=== PATIENT | female | born 2000 | race Two or more races ===

== ENCOUNTER 2024-08-27 23:09 | Inpatient (IN) | payer OTHER ==
[~2024-08-27] VITALS: Ht 157.5 cm; Wt 59.0 kg
[2024-08-27 23:39] LABS: Urine Bacteria MANY /hpf (None Seen); Urine Blood Negative /uL (Negative); Urine Clarity Turbid (Clear); Urine Color Yellow (Yellow); Urine Mucus FEW (None Seen); Urine Protein, UAD TRACE (Negative); Urine Specific Gravity 1.024 (1.001-1.035); Urine Squamous Epithelial Cell FEW /hpf (<5); Urine Urobilinogen Normal (Negative); Urine WBC 8 /HPF (0-5); Urine pH 6.5 (5.0-9.0)
[2024-08-27 23:48] LABS: Cannabinoid Screen, Urine Pos (NEGATIVE)
[2024-08-27 23:49] LABS: Barbiturate Scree,Urine Neg (NEGATIVE); Opiate Scree,Urine Neg (NEGATIVE); Phencyclidine Screen, Urine Neg (NEGATIVE)
[2024-08-27 23:50] LABS: Amphetamine Screen, Urine Neg (NEGATIVE); Benzodiazephine Screen, Urine Neg (NEGATIVE); Cocaine Screen, Urine Neg (NEGATIVE)
[2024-08-27] MEDS: BETAMETHASONE ACET (30mg/5ml) 5ml Vial 6mg/ml IM STA (23:53)
--- NOTE | 2024-08-27 23:54 | DVHHP2 ---
OB CC & HPI Date Date of Admission: Aug 27, 2024 Patient Identification: : 4 Para: 3 EDC: Oct 04, 2024 EGA: 34.4wks Chief Complaints: Reason for admission: labor (active) History of Present Complaints 23yo IUP@34.4wks presents in active labor. Pt reports UCs Q3 min that started this evening. Denies LOF/VB/BHAKTA/vision changes/RUQ pain. Endorses +FM. Limited PNC in [place] with Dr. Kathia Messina and MFM Dr. Smart, has not been seen since 20 weeks since she moved to [facility]. No records available. Dating based on first trimester sono. GTT and GBS not done. OB hx: #1 - , 37 wks, no complications #2 - , 35 wks, PTD, no other complications, hx of fast #3 - , 34 wks, PTD, no other complications, hx of fast Denies hx of PPH or blood transfusion Past Medical History Cardiac: No pertinent Hx Pulmonary: No pertinent Hx Central Nervous System: No pertinent Hx GI: No pertinent Hx Hemotology/Oncology: No pertinent Hx Hepatobiliary: No pertinent Hx Psychiatric: No pertinent Hx Musculoskeletal: No pertinent Hx Rheumotologic: No pertinent Hx Infectious Disease: No peritnent Hx ENT: No pertinent Hx Renal/: No pertinent Hx Endocrine: No pertinent Hx Dermatology: No pertinent Hx Past Surgical History: No pertinent Hx OB History OB History Care: Limited Care Ultrasounds: Other (normal per pt) Obstetrical Complications: None Medical Complications: None Allergies: Coded Allergies: NO KNOWN ALLERGIES (Unverified , 08/27/24) Home Meds Active Scripts Cephalexin (KEFLEX CAPSULE) 250 Mg Cp, 500 MG PO BID for 7 Days, #14 CAP Prov:LINETTE AIMN CNM 08/28/24 Home Meds PNV Current Medications Current Medications Medications (Trade) Dose Ordered Sig/Malcolm Route PRN Reason Start Time Stop Time Status Last Admin Betamethasone Acet/Betameth SodPhos (Celestone Injection) 12 mg ONCE STAT IM 08/27/24 23:44 08/27/24 23:46 DC Family & Social History Family/Social History Past Family/Social History: denies Blood Type: Unknown Rubella: unknown RPR/VDRL: Unknown GBS Status: Unknown HBsAG: Unknown Review of Systems Constitutional: No symptom reported Ears, Nose, & Throat: No symptom reported Eyes: No symptom reported Pulmonary/Respiratory: No symptom reported Cardiovascular: No symptom reported Gastrointestinal: No symptom reported Genitourinary: No symptom reported Musculoskeletal: No symptom reported Skin: No symptom reported Psychiatric: No symptom reported Endocrine: No symptom reported Hemotologic/Lymphatic: No symptom reported OB Admission Exam Physical Exam Vitals: VSS, see chart Laboratory Tests Test 08/27/24 23:21 08/27/24 23:59 Range/Units Urine Color Yellow Yellow Urine Clarity Turbid H Clear Urine pH 6.5 5.0-9.0 Urine Specific [place] 1.024 1.001-1.035 Urine Protein Trace H Negative Urine Ketones 1+ H Negative Urine Blood Negative Negative /uL Urine Nitrite 2+ H Negative Urine Bilirubin Negative Negative Urine Urobilinogen Normal Negative mg/dL Urine Leukocyte Esterase 1+ Negative /uL Urine RBC 1 0 - 4 /hpf Urine Microscopic WBC 8 H 0-5 /HPF Urine Squamous Epithelial Cells Few <5 /hpf Urine Bacteria Many H None Seen /hpf Urine Mucus Few None Seen Urine Glucose Normal Normal mg/dL Urine Opiates Screen Neg NEGATIVE Urine Fentanyl Screen Neg NEGATIVE Urine Barbiturates Screen Neg NEGATIVE Urine Phencyclidine Screen Neg NEGATIVE Urine Amphetamines Screen Neg NEGATIVE Urine Benzodiazepines Screen Neg NEGATIVE Urine Cocaine Screen Neg NEGATIVE Urine Cannabinoids Screen Pos NEGATIVE Chlamydia trachomatis (LASHAWN) Pending Neisseria gonorrhoeae (LASHAWN) Pending White Blood Count 15.5 H 4.4-10.8 10^3/uL Red Blood Count 4.17 4.0-5.20 10^6/uL Hemoglobin 11.9 L 12.2-16.2 g/dL Hematocrit 35.1 L 36.0-46.0 % Mean Corpuscular Volume 84.2 80.0-100.0 fL Mean Corpuscular Hemoglobin 28.5 28.0-32.0 pg Mean Corpuscular Hemoglobin Concent 33.8 32.0-36.0 g/dL Red Cell Distribution Width 13.9 11.8-14.3 % Platelet Count 194 140-450 10^3/uL Mean Platelet Volume 8.0 6.9-10.8 fL Neutrophils (%) (Auto) 76.1 37.0-80.0 % Lymphocytes (%) (Auto) 18.4 10.0-50.0 % Monocytes (%) (Auto) 5.0 0.0-12.0 % Eosinophils (%) (Auto) 0.2 0.0-7.0 % Basophils (%) (Auto) 0.3 0.0-2.0 % Neutrophils # (Auto) 11.8 H 1.6-8.6 10 ^3/uL Lymphocytes # (Auto) 2.9 0.4-5.4 10 ^3/uL Monocytes # (Auto) 0.8 0-1.3 10 ^3/uL Eosinophils # (Auto) 0 0-0.8 10 ^3/uL Basophils # (Auto) 0 0-0.2 10 ^3/uL Nucleated Red Blood Cells 0.0 % Prothrombin Time Pending Prothrombin Time INR Pending Activated Partial Thromboplast Time Pending Sodium Level Pending Potassium Level Pending Chloride Level Pending Carbon Dioxide Level Pending Anion Gap Pending Blood Urea Nitrogen Pending Creatinine Pending Glomerular Filtration Rate Calc Pending BUN/Creatinine Ratio Pending Serum Glucose Pending Calcium Level Pending Total Bilirubin Pending Aspartate Amino Transferase (AST) Pending Alanine Aminotransferase (ALT) Pending Alkaline Phosphatase Pending Total Protein Pending Albumin Pending Treponema pallidum Antibody Pending Hepatitis B Surface Antigen Pending Hepatitis C Antibody Pending HIV (1&2) Antibody Pending Rubella Antibody Pending HEENT: TMs Normal, Fontanelles Normal, Nasal Mucosa Normal, Eyes non-injected, Oropharynx Normal, PERRLA, Moist Membranes, EOMI Heart: Rhythm Normal Lungs: Clear Abdomen: Gravid Extremities: Normal Reflexes: Normal Cervical Dilatation: 6cm Effacement: Other (80%) Station: 0 Membranes: Intact Heart Rate: 130's Accelerations: Accelerations Present Decelerations: No Decelerations Stock Parts Inspector Variability: Average (6-25) Contractions on Admission: < 5 Minutes Apart Intensity: Moderate OB Plan Plan Admitting Diagnosis: active labor Plan: Expectant Management Other Plan: A: 23yo IUP@34.4wks Active labor UTI Category I EFM Intact Membranes GBS not done P: Dr. Shukla consulted, Betamethasone 12mg IM ordered and Admit to L&D Anticipate precipitous vaginal delivery and prepare peds team Informed consent obtained Pt declines continuous EFM. AMA form signed. RN instructed to doppler FHTs q30 min for now. OB complete ordered Walk-in OB labs ordered Start IV PCN for GBS prophylaxis Rx sent for keflex (UTI treatment after D/C). Discussed with pt and FOB. LAUREN is co-managing care with Dr. Shukla. Visit Coding OBGYN Date of Service: Aug 28, 2024 Billing Provider: LINETTE AMIN CNM ANIMAL BREEDER Common Visit Codes: 32848-VBPTISP INP/OBS CARE (HIGH) ANIMAL BREEDER Procedure Codes: 54108-28- NON-STRESS TEST LINETTE AMIN CNM Aug 27, 2024 23:54
[2024-08-28] MEDS ORDERED: LACTATED RINGER'S 1,000 ML IV SCH
[2024-08-28] MEDS ORDERED: LIDOCAINE 2%HCL (LOCAL ANESTH.) INJ 20ML MDV IJ PRN
[2024-08-28] MEDS ORDERED: OXYTOCIN 10UNIT/ML 1ML VIAL IM ONE (00:15)
[2024-08-28 00:24] LABS: Basophils # (auto) 0 10 ^3/uL (0-0.2); Basophils % (auto) 0.3 % (0.0-2.0); Eosinophils # (auto) 0 10 ^3/uL (0-0.8); Eosinophils % (auto) 0.2 % (0.0-7.0); Hematocrit 35.1 % (36.0-46.0); Hemoglobin 11.9 g/dL (12.2-16.2); Lymphocytes # (auto) 2.9 10 ^3/uL (0.4-5.4); Lymphocytes % (auto) 18.4 % (10.0-50.0); Mean Corpuscular Hemoglobin 28.5 pg (28.0-32.0); Mean Corpuscular Hgb Conc. 33.8 g/dL (32.0-36.0); Mean Corpuscular Volume 84.2 fL (80.0-100.0); Monocytes # (auto) 0.8 10 ^3/uL (0-1.3); Neutrophils # (auto) 11.8 10 ^3/uL (1.6-8.6); Neutrophils % (auto) 76.1 % (37.0-80.0); Platelet Count (auto) 194 10^3/uL (140-450); Red Blood Cells 4.17 10^6/uL (4.0-5.20); Red Cell Distribution Width 13.9 % (11.8-14.3); White Blood Cell 15.5 10^3/uL (4.4-10.8)
[2024-08-28] MEDS: PENICILLIN G POTASSIUM 2,500,000 UNITS in D5W 5% 50 ML IV SCH (00:38)
[2024-08-28 00:39] LABS: INR 0.97 (0.9-1.15); Partial Thromboplastin Time 24.7 SEC (24.5-34.5); Prothrombin Time 10.3 sec (9.3-11.8)
[2024-08-28 00:40] LABS: Alanine Aminotransferase 11 U/L (7-40); Albumin 4.2 g/dL (3.2-4.8); Anion Gap 12 (5-15); Aspartate Aminotransferase 18 U/L (13-40); BUN/Creatinine Ratio 10.6 (10.0-20.0); Bilirubin, Total 0.3 mg/dL (0.2-1.0); Calcium 8.9 mg/dL (8.7-10.4); Carbon Dioxide 21 mmol/L (20-31); Chloride 106 mmol/L (98-107); Glucose 81 mg/dL (74-106); Potassium 3.6 mmol/L (3.5-5.1); Sodium 139 mmol/L (136-145); Total Protein 6.8 g/dL (5.7-8.2)
[2024-08-28] MEDS: PENICILLIN G POT 5MIL/D5 50ML 50 ML IV ONE (00:40)
[2024-08-28] MEDS ORDERED: CEPH250C PO (00:42)
[2024-08-28 00:57] LABS: Alkaline Phosphatase 129 U/L (46-116); Blood Urea Nitrogen 7 mg/dL (9-23)
--- NOTE | 2024-08-28 01:05 | DVH ---
OB ULTRASOUND, LIMITED CLINICAL INDICATION: labor TECHNIQUE: Multiple grayscale ultrasound and M-mode images were obtained of the pelvis for evaluation of intrauterine . COMPARISON: None FINDINGS: A single living fetus is seen in cephalic presentation. Biparietal diameter: 8.72 cm (35 weeks, 1 days) Head Circumference: 31.84 cm (35 weeks, 6 days) Abdomen Circumference: 29.58 cm (33 weeks, 4 days) Femur Length: 6.93 cm (35 weeks, 4 days) Estimated weight: 2452 grams (+/- 367 grams). 5 lb 6 oz Placenta: Anterior, grade 2. Amniotic fluid: Visibly normal. TOMMY 12.4 cm heart rate: 144 beats/min. A complete anatomic survey was not performed on this exam. IMPRESSION: Single living intrauterine with an estimated gestational age of 35 weeks, 0 days, corresp onding to an estimated date of delivery of 10/01/2024.
--- NOTE | 2024-08-28 02:27 | LDN2 ---
Labor and Delivery Note Date 08/28/24 Age 23 4 Para now 4 AB 0 EDC 10/04/2024 EGA 34.5 wks Diagnosis Active Labor, Precipitous Vaginal Delivery: VTX Vacuum Assisted: No Placenta: Spontaneous Sex: Male Weight 2545g Apgars 8/9 Nuchal Cord Transected: No Amniotic Fluid: Clear (SROM while pushing, malodorous (fishy)) Anesthesia none Episiotomy: No Extension: No Repaired with None EBL QBL 250 mL Labs Laboratory Tests 08/27/24 23:59: HIV (1&2) Antibody Negative, Rubella Antibody Positive Blood Bank 08/27/24 23:59: Blood Type O POSITIVE Complications none Conditions Stable Marketing Communications Specialist Somu Comments/Significant Med Maxx At 0157 this 23yo now delivered a viable Male by w/ APGARS 8/9. [facility] presentation and loose Nuchal x1 with cord reduced after . Ammy cazares CNM dried & stimulated baby and suctioned mouth then nose with bulb syringe. Baby had vigorous cry. RT at bedside. placed skin to skin on pts chest. Cord clamped and cut after 1 min. Cord gases collected, venous pH 7.4. Cord blood sent. Pitocin IV bolus started. Intact 3-vessel cord, placenta delivered spontaneously, David. Placenta sent to pathology. Patient had no anesthesia. Cervix/vagina inspected (intact) and perineum/labia intact. Fundus at U, firm, midline, and light lochia. QBL 250ml. VSS. Count correct x2. Patient to care and baby to couplet care, both stable. Visit Coding OBGYN Date of Service: Aug 28, 2024 Billing Provider: LINETTE CAZARES CNM HUMAN PERFORMANCE TECHNOLOGIST Common Visit Codes: PROCEDURE ONLY HUMAN PERFORMANCE TECHNOLOGIST Procedure Codes: 37757-LXO DEL INCLUDING LAURENT QUINONEZ STUDENTMDW Aug 28, 2024 02:27
[2024-08-28] MEDS ORDERED: ONDANSETRON ODT 4 MG TAB PO PRN (02:30)
[2024-08-28] MEDS: DERMOPLAST 60ML BOTTLE TOP PRN (02:35)
[2024-08-28] MEDS: WITCH HAZEL-GLYCERIN PAD TOP PRN (02:35)
[2024-08-28] MEDS: PHISODERM TOP SOLN 240ML BTL TOP PRN (02:35)
[2024-08-28] MEDS: IBUPROFEN 600 MG TAB PO PRN (02:35)
[2024-08-28] MEDS: DEXTROSE 10% 250 ML IV ONE (03:00)
[2024-08-28 04:15] VITALS: BP 118/72; PULSE 68; RESP 18; TEMP 98; O2SAT 95
[2024-08-28] MEDS: ACETAMINOPHEN 325 MG TAB PO PRN (04:31)
[2024-08-28] MEDS: LACT. RINGERS/OXYTOCIN 20UNITS 500 ML IV ONE ×2 (05:20→05:22)
[2024-08-28 07:00] VITALS: BP 118/70; PULSE 81; RESP 18; TEMP 98; O2SAT 96
[2024-08-28] MEDS ORDERED: DOCUSATE SOD 100 MG CAP PO SCH (22:00)
[2024-08-30 01:06] LABS: Chlamydia Trachomatis, NAA Negative (Negative); Neisseria gonorrhoeae, NAA Negative (Negative)
== END 2024-08-28 09:30 | disposition home or self-care (01) | DRG 560 ==
LOC: LDRP 23:09 → OBSVTOIN 23:42
PROVIDERS: ADMIT Obstetrics & Gynecology; ATTEND Obstetrics & Gynecology
PROC: 10E0XZZ Delivery of Products of Conception, External Approach (ICD-10-PCS; principal; 2024-08-28)
DX: O60.14X0 Preterm labor third trimester with preterm delivery third trimester, not applicable or unspecified (principal); Z37.0 Single live birth; O23.43 Unspecified infection of urinary tract in pregnancy, third trimester; Z3A.34 34 weeks gestation of pregnancy; O62.3 Precipitate labor; N39.0 Urinary tract infection, site not specified; O69.81X0 Labor and delivery complicated by cord around neck, without compression, not applicable or unspecified
CPT/HCPCS: 36415; 59025; 59409; 76805; 80053; 80307; 81001; 81002; 85025; 85610; 85730; 86703; 86762; 86780; 86803; 86850; 86900; 86901; 87340; 94760; 96360; 96365; 96372; G0378; J2540; J2590; J7060